=== PATIENT | male | born 1985 | race Caucasian/White ===

== ENCOUNTER → 2018-09-05 | Emergency (ER) | payer OTHER ==
[~2018-09-05] VITALS: Ht 180.3 cm; Wt 79.4 kg
[~2018-09-05] MED LIST: BENADRYL25 MG PO; CONEX TABLET1 EACH PO; OSEL75CA; PEPCID40 MG PO; ZOFRAN8 MG PO
== END | disposition home or self-care (01) ==
LOC: ER 20:28
DX: K29.70 Gastritis, unspecified, without bleeding (principal); J11.1 Influenza due to unidentified influenza virus with other respiratory manifestations

== ENCOUNTER 2018-09-07 06:13 | Emergency (ER) | payer OTHER ==
[~2018-09-07] VITALS: Ht 180.3 cm; Wt 79.4 kg
[~2018-09-07 06:13] MED LIST changes: -OSEL75CA
[2018-09-07] MEDS ORDERED: OSEL75CA (06:42)
== END 2018-09-07 11:37 | disposition home or self-care (01) ==
LOC: ER 06:13
DX: J09.X2 Influenza due to identified novel influenza A virus with other respiratory manifestations (principal); K52.89 Other specified noninfective gastroenteritis and colitis